=== PATIENT | male | born 1965 | race Caucasian/White ===

== ENCOUNTER 2022-09-28 19:42 | Emergency (ER) | payer MEDICAID, SELFPAY ==
--- NOTE | 2022-09-28 19:52 | ED_ITS ---
HPI - General Adult General Chief complaint: Skin/Abscess/Foreign Body Stated complaint: ? food stuck in throat Related Data Home Medications Medication Instructions Recorded Confirmed cyclobenzaprine 10 mg tablet 10 mg PO TID 09/29/22 09/29/22 naproxen 500 mg tablet 500 mg PO BID 09/29/22 09/29/22 omeprazole 20 mg capsule,delayed 20 mg PO DAILY 09/29/22 09/29/22 release pregabalin 300 mg capsule 300 mg PO BID 09/29/22 09/29/22 Allergies Allergy/AdvReac Type Severity Reaction Status Date / Time aspirin AdvReac Epistaxis Verified 09/29/22 13:11 [facility] Past Medical History Medical History (Updated 10/02/22 @ 11:50 by Marybel Ulloa NP) Chronic back pain History of dysphagia Hx of gastroesophageal reflux (GERD) Hx of myocardial infarction Neck pain with history of cervical spinal surgery Surgical History History of surgery on wrist Hx of cervical spine surgery Social History Social History Alcohol intake: current Patient Tobacco Use Status: Current everyday Tobacco user Smoked in Last 30 Days: Yes Patient Interested in Nicotine Replacement: No Use of substances other than those prescribed or required for medical reasons: Yes Substance Use Type: Marijuana Substance Use Frequency: Occasionally Are you DNR?: No Advance Directives: No Advance Directives Information Provided: No Nutrition Risks: No Nutritional Risk Physical Exam ED Vital Signs: BMI result Body Mass Index 24.4 Course Course Course Narrative: This is a rapid medical exam: Additional HPI, ROS, PE not included below will be deferred to primary provider. Patient is a 56-year-old male presenting with foreign body sensation to chest/epigastric area and difficulty swallowing since eating steak last night. Reports issues swallowing since neck surgery in 2020 but has not had an endoscopy or swallow study. States has happened previously as well but has never been to the ED, is typically able to swallow or vomit the obstruction. Patient is managing secretions, no airway compromise. Speaking easily in full sentences. States has attempted fluids, ice cream, has vomited with all attempts. Discharge Plan Discharge Clinical Impression: Difficulty in swallowing Patient Disposition: Elopement Prescriptions: No Action cyclobenzaprine 10 mg tablet 10 mg PO TID omeprazole 20 mg capsule,delayed release(DR/EC) 20 mg PO DAILY naproxen 500 mg tablet 500 mg PO BID pregabalin 300 mg capsule 300 mg PO BID Interventions: ED Discharge Assessment Last Done: 09/28/22 22:37 Discharge Date/Time: 09/28/22 22:38
[2022-09-28 19:54] VITALS: BP 146/100; PULSE 88; RESP 18; TEMP 36.9; O2SAT 94; BMI 24.4
--- NOTE | 2022-09-28 20:01 | PC.NURSE ---
patient came in for the complaint of food being stuck in the sternum area patient have no complaints of pain at this time
--- NOTE | 2022-09-28 22:22 | MHC.EDTECH ---
PATIENT SAID HE COULD NOT BREATHE ,THIS PCT CHECK PATIENT 02 SAT WHICH READ 100 % ,RN AWARE ,PATIENT BECAME VERY DISRESPECTFUL MYSELF ,NURSE AND REGISTRATION STAFF ,AND THEN WALK OUT .
--- NOTE | 2022-09-28 22:24 | PC.NURSE ---
patient was triage and all vitals were stable patient later came trying to force his way in the triage door being hyper verbal demanding to be seen stating he could not breath patient was reassured that he was being monitored someone would recheck patient became hyper verbal and aggressive with the other staff and while being monitored and told he was not showing no distress at this time the patient stormed out of the front door threatening staff
--- OUTSIDE RECORDS SUMMARY | 2022-09-28 22:31 | XMS_ITS | Continuity of Care Document ---
Author Name Unknown Organization [facility] Address [address] [place] [address]- Care Team Providers Care Security Project Manager Name Role Phone Vonda Burch MD Primary Care Physician Encounter [facility] Date(s): 07/27/20 - 09/12/20 [facility] [address] [place] [address]- Attending Physician: Juan Bishop Allergies, Adverse Reactions, Alerts Substance Reaction Severity Status amoxicillin 1 Active aspirin Active Vancomycin Hydrochloride 2 A ctive 1developed a diffuse morbilliform rash several days after amoxicillin; had mild eosinophilia but no other systemic symptoms 2possible reaction-- not erythroderma; pt developed maculopapular rash on forearms b/l at time of vancomycin admin, still there 24 hrs later but improving. Immunizations Not Given Vaccine Date Status Refusal Reason pneumococcal 23-valent vaccine 06/17/18 Not Given Patient Refuses Medications aspirin 81 mg oral tablet 1 tablet = 81 mg, By Mouth, Daily, # 30 tablet, 0 Refills, Maintenance, 12/18/17 21:13:23 EDT, Tablet Start Date: 12/18/17 Status: Ordered Colace sodium 100 mg oral capsule 200 mg, 2, capsule, By Mouth, 2 times a day, PRN, # 120 capsule, Refills 0, Tot. Refills 0, Maintenance, for constipation, 01/01/18 15:13:56 EDT, Route to Pharmacy Electronically, [id number], [facility]/pharmacy #[id number] Start Date: 01/01/18 Status: Ordered cyclobenzaprine 10 mg oral tablet 10 mg, 1, tablet, By Mouth, 3 times a day, Refills 0, Maintenance, 01/01/18 11:54:25 EDT Start Date: 01/01/18 Status: Ordered Gabapentin = 600 mg, By Mouth, 3 times a day, 0 Refills, Maintenance, 03/26/19 7:47:00 EST Start Date: 03/26/19 Status: Ordered Gauze Pad (4 X 4) See Instructions, # 2 box, Maintenance, Dressing change 2x daily for RLE wound, 06/24/18 12:22:11 EDT, Compound Start Date: 06/24/18 Status: Ordered Gauze Roll (4 ) See Instructions, # 2 each, Maintenance, Dressing change 2x daily for RLE wound, 06/24/18 12:22:06 EDT, Compound Start Date: 06/24/18 Status: Ordered Lipitor 80 mg oral tablet 1 tablet = 80 mg, By Mouth, Daily, # 30 tablet, 0 Refills, Maintenance, Tablet Start Date: 12/18/17 Status: Ordered Lyrica 100 mg oral capsule 1 capsule = 100 mg, By Mouth, 2 times a day, 0 Refills, Maintenance, 03/26/19 7:48:00 EST Start Date: 03/26/19 Status: Ordered Mavyret 100 mg-40 mg oral tablet 3 tablet, By Mouth, Daily, with food, # 84 tablet, 1 Refills, Maintenance, 10/03/18 12:42:54 EDT, Tablet, Hold Atorvastatin while on Mavyret, 3 tablet By Mouth Daily,x28 days,Instr:with food Start Date: 10/03/18 Stop Date: 11/28/18 Status: Ordered Metoprolol Tartrate 25 mg oral tablet 1 tablet = 25 mg, By Mouth, 2 times a day Start Date: 06/15/18 Status: Ordered nitroglycerin 0.4 mg sublingual tablet 1 tablet = 0.4 mg, Sublingual, Every 5 minutes, 0 Refills, Maintenance, 06/15/18 14:06:45 EDT Start Date: 06/15/18 Status: Ordered omeprazole 20 mg oral enteric coated capsule 1 capsule = 20 mg, By Mouth, Daily, # 30 capsule, 5 Refills, Maintenance, 05/11/20 10:32:00 EST, ECCapsule, [id number], 182.2, cm, 03/26/19 7:41:00 EST, Height, 105.6, kg, 04/08/19 4:02:00 EST, Dry Weight Start Date: 05/11/20 Status: Ordered Problem List Condition Effective Dates Status Health Status Inform ant CAD (coronary artery disease)(Confirmed) Active History of MRSA infection(Confirmed) Active Hyperlipemia(Confirmed) Active Hypertension(Confirmed) Active Social History Social History Type Response Tobacco Use: 4 or less cigar ettes(less than 1/4 pack)/day in last 30 days. Sex
--- OUTSIDE RECORDS SUMMARY | 2022-09-28 22:31 | XMS_ITS | Continuity of Care Document ---
Author Name Unknown Organization [facility] Address [address] [place] [address]- Care Team Providers Care Wall Taper Helper Name Role Phone Vonda Burch MD Primary Care Physician [phone] [facility] Date(s): 06/09/19 - 08/17/19 [facility] [address] [place] [address]- [facility] Attending Physician: Michael Armstrong MD Admitting Physician: Michael Armstrong MD Referring Physician: Vonda Burch MD Allergies, Adverse Reactions, Alerts Substance Reaction Severity [...] 01/01/18 15:13:56 EDT, Route to Pharmacy Electronically, [id number], [facility]/pharmacy #[id number] Start Date: 01/01/18 Status: Ordered cyclobenzaprine [...] 06/15/18 Status: Ordered omeprazole 20 mg oral delayed release tablet 1 tablet = 20 mg, By Mouth, Daily, # 30 tablet, 5 Refills, Maintenance, 06/05/19 17:16:00 EDT, EC Tablet, [facility]/pharmacy #[id number], 182.2, cm, 03/26/19 7:41:00 EST, Height, 105.6, kg, 04/08/19 4:02:00 EST,Dry Weight Start Date: 06/05/19 Status: Ordered Problem List Condition Effective Dates Status Health Status Inform ant CAD (coronary artery disease)(Confirmed) Active History of MRSA infection(Confirmed) Active Hyperlipemia(Confirmed) Active Hypertension(Confirmed) Active Social History Social History Type Response Tobacco Use: 4 or less cigar ettes(less than 1/4 pack)/day in last 30 days. Sex
--- OUTSIDE RECORDS SUMMARY | 2022-09-28 22:31 | XMS_ITS | Continuity of Care Document ---
Author Name Unknown Organization [facility] ter Address [address] [place] [address]- Care Team Providers Care Barrel Tester Name Role Phone Vonda Burch MD Primary Care Physician [phone] Encounter [facility] Date(s): 04/08/19 - 04/08/[address] [address]- [facility] Discharge Disposition: A-D/C Home Attending Physician: Héctor Singh MD Admitting Physician: Héctor Snigh MD Referring Physician: Not on Staff, Referring MD Allergies, Adverse Reactions, Alerts Substance Reaction [...] 01/01/18 15:13:56 EDT, Route to Pharmacy Electronically, [id number], [facility]/pharmacy #[id number] Start Date: 01/01/18 Status: Ordered cyclobenzaprine 10 mg oral tablet 10 mg, 1, tablet, By Mouth, 3 times a day, Refills 0, Maintenance, 01/01/18 11:54:25 EDT Start Date: 01/01/18 Status: Ordered doxycycline monohydrate 100 mg oral tablet 1 tablet = 100 mg, By Mouth, 2 times a day, for 10 days, # 20 tablet, 0 Refills, Acute 04/18/19 5:12:00 EST, 04/08/19 5:12:00 EST, Tablet, [facility]/pharmacy #[id number], 182.2, cm, 03/26/19 7:41:00 EST, Height,105.6, kg, 04/08/19 4:02:00 EST, Dry Weight Start Date: 04/08/19 Stop Date: 04/18/19 Status: Ordered Gabapentin = 600 mg, By [...] mg, By Mouth, Daily, # 30 tablet, 1 Refills, Maintenance, 03/20/19 15:47:00 EST, EC Tablet, [facility]/pharmacy #[id number], 182.2, cm, 03/20/19 15:20:00 EST, Height, 113.9, kg, 06/15/18 16:01:00 EDT, Dry Weight Start Date: 03/20/19 Status: Ordered Problem List Condition Effective Dates Status Health Status Inform ant CAD (coronary artery disease)(Confirmed) Active Hyperlipemia(Confirmed) Active Hypertension(Confirmed) Active Hepatitis C infection(Confirmed) Active Vital Signs Most recent to oldest [Reference Range]: 1 2 3 Weight 105.6 kg (04/08/19 4:02 AM) 105.6 kg (04/08/19 12:25 AM) Oxygen Saturation [94-100 %] 97 % (04/08/19 4:02 AM) 100 % (04/08/19 3:07 AM) 100 % (04/08/19 12:25 AM) Pulse Rate [55-90 bpm] 89 bpm (04/08/19 4:02 AM) 97 bpm *H* (04/08/19 3:07 AM) 97 bpm *H* (04/08/19 12:25 AM) Blood Pressure [90-138/55-84 mm Hg] 154/86mm Hg *H* (04/08/19 4:02 AM) 168/107mm Hg *H* (04/08/19 3:07 AM) 161/113mm Hg *H* (04/08/19 12:25 AM) Respiratory Rate [16-30 br/min] 20 br/min (04/08/19 4:02 AM) 20 br/min (04/08/19 3:07 AM) 24 br/min (04/08/19 12:25 AM) Temperature [96.8-100.4 DegF] 97.6 DegF (04/08/19 3:07 AM) 97.6 DegF (04/08/19 12:25 AM) Mode of Delivery (Oxygen) Room air (04/08/19 3:07 AM) Room air (04/08/19 12:25 AM) Blood pressure sites Arm, right (04/08/19 3:07 AM) Arm, right (04/08/19 12:25 AM) Temperature Route Oral (04/08/19 3:07 AM) Oral (04/08/19 12:25 AM) Dry Weight 105.6 kg (04/08/19 4:02 AM) 105.6 kg (04/08/19 12:25 AM) Weight Obtained Via Standing scale (04/08/19 12:25 AM) Dry Weight Obtained Via Standing scale (04/08/19 12:25 AM) Social History Social History Type Response Tobacco Use: 4 or less cigar ettes(less than 1/4 pack)/day in last 30 days. Sex
--- OUTSIDE RECORDS SUMMARY | 2022-09-28 22:31 | XMS_ITS | Continuity of Care Document ---
Author Name Unknown Organization [facility] Address [address] [place] [address]- Care Team Providers Care Lens Blank Gauger Name Role Phone Vonda Burch MD Primary Care Physician Encounter [facility] Date(s): 08/13/20 - 09/12/[facility] [address] [place] [address]- Attending Physician: Alejandro Hernández Admitting Physician: Alejandro Hernández Referring Physician: AdmtrAlejandro Allergies, Adverse Reactions, Alerts Substance Reaction Severity [...] 01/01/18 15:13:56 EDT, Route to Pharmacy Electronically, [id number], [facility]/pharmacy #[id number] Start Date: 01/01/18 Status: Ordered [...]
--- OUTSIDE RECORDS SUMMARY | 2022-09-28 22:31 | XMS_ITS | Continuity of Care Document ---
Author Name Unknown Organization [facility] Address [address] [place] [address]- Care Team Providers Care Airfield Engineer Officer Name Role Phone Vonda Burch MD Primary Care Physician [phone] Encounter [facility] R [id number] Date(s): 05/16/19 - 07/13/19 [facility] [address] [place] [address]- [facility] Attending Physician: Michael Armstrong MD Admitting Physician: [...] 01/01/18 15:13:56 EDT, Route to Pharmacy Electronically, [id number], [facility]/pharmacy #[id number] Start Date: 01/01/18 Status: Ordered cyclobenzaprine [...] Refills, Maintenance, 06/05/19 17:16:00 EDT, EC Tablet, [facility]/pharmacy #[id number], 182.2, cm, 03/26/19 7:41:00 EST, Height, 105.6, kg, 04/08/19 4:02:00 EST,Dry Weight Start Date: 06/05/19 Status: Ordered Problem List Condition Effective Dates Status Health Status Inform ant CAD (coronary artery disease)(Confirmed) Active Hyperlipemia(Confirmed) Active Hypertension(Confirmed) Active Hepatitis C infection(Confirmed) Active Social History Social History Type Response Tobacco Use: 4 or less cigar ettes(less than 1/4 pack)/day in last 30 days. Sex
--- OUTSIDE RECORDS SUMMARY | 2022-09-28 22:31 | XMS_ITS | Continuity of Care Document ---
Author Name Unknown Organization [facility] Address [address] [place] [address]- Care Team Providers Care Recreation Instructor Name Role Phone Marcin BALBUENA, Vonda Andrea Primary Care Physician Encounter [facility] Date(s): 04/28/22 - 05/28/22 [facility] [address] [place] [address]- [place] Allergies, Adverse Reactions, Alerts Substance Reaction Severity [...] 01/01/18 15:13:56 EDT, Route to Pharmacy Electronically, [id number], [facility]/pharmacy #[id number] Start Date: 01/01/18 Status: Ordered cyclobenzaprine [...] Daily, # 30 capsule, 5 Refills, Maintenance, 12/05/21 10:15:00 EDT, ECCapsule, [facility]/pharmacy #[id number] Start Date: 12/05/21 Status: Ordered Problem List Condition Confirmation Course Effective Dates Status Health St atus Informant CAD (coronary artery disease) Confirmed Active History of MRSA infection Confirmed Active Hyperlipemia Confirmed Active Hypertension Confirmed Active Social History Social History Type Response Tobacco Use: 4 or less cigar ettes(less than 1/4 pack)/day in last 30 days. Sex Patient Care team information Care Team Personnel Name: Chante Demarco RN Position: S RN Member Role: Primary Care Nurse Name: Vonda Burch MD Position: [facility] Primary Care Physician Member Role: PCP Address: Address: [address] [place] [address] [place] [address]- Name: Loren Angel RN Position: [facility] RN Member Role: Primary Care Nurse Name: Vanna Song RN Position: [facility] Onco RN Member Role: Primary Care Nurse Care Team Related Persons Name: SAMIR SAAB Address: home [address] [place] [address]
--- OUTSIDE RECORDS SUMMARY | 2022-09-28 22:31 | XMS_ITS | Continuity of Care Document ---
Author Name Unknown Organization [facility] Address [address] [place] [address]- Care Team Providers Care Tank Furnace Operator Name Role Phone Vonda Burch MD Primary Care Physician Encounter [facility] Date(s): 07/25/19 - 08/01/19 [facility] [address] [place] [address]- [facility] Encounter Diagnosis History of MRSA infection(Discharge Diagnosis) - 07/25/19 Attending Physician: Michael Armstrong MD Referring Physician: Vonda [...] 01/01/18 15:13:56 EDT, Route to Pharmacy Electronically, [id number], [facility]/pharmacy #[id number] Start Date: 01/01/18 Status: Ordered [...] Refills, Maintenance, 06/05/19 17:16:00 EDT, EC Tablet, [id number], 182.2, cm, 03/26/19 7:41:00 EST, Height, 105.6, kg, 04/08/19 4:02:00 EST,Dry Weight Start Date: 06/05/19 Status: Ordered Problem List Condition Effective Dates Status Health Status Inform ant CAD (coronary artery disease)(Confirmed) Active History of MRSA infection(Confirmed) Active Hyperlipemia(Confirmed) Active Hypertension(Confirmed) Active Diagnosis Diagnosis Type Effective Dates Health Status Cl inical Service Informant History of MRSA infection Discharge Diagnosis 07/25/19 Social History Social History Type Response Tobacco Use: 4 or less cigar ettes(less than 1/4 pack)/day in last 30 days. Sex
--- OUTSIDE RECORDS SUMMARY | 2022-09-28 22:31 | XMS_ITS | Continuity of Care Document ---
Author Name Unknown Organization [facility] Address [address] [address]- Care Team Providers Care Ecommerce Manager Name Role Phone Marcin BALBUENA, Vonda Andrea Primary Care Physician [phone] Encounter [facility] Date(s): 01/05/22 - 02/04/22 [facility] [address] [place] [id number] Attending Physician: Alejandro Hernández Admitting Physician: Alejandro [...] 01/01/18 15:13:56 EDT, Route to Pharmacy Electronically, [id number], [facility]/pharmacy #[id number] Start Date: 01/01/18 [...] capsule, 5 Refills, Maintenance, 12/05/21 10:15:00 EDT, ECCapslawrence, [facility]/pharmacy #[id number] Start Date: 12/05/21 Status: Ordered Problem [...] Team Personnel Name: Chante Demarco RN Position: [facility] RN Member Role: Primary Care Nurse Name: Vonda Burch MD Position: [facility] Primary Care Physician Member Role: PCP Address: Address: [address] [place] [address] [place] [address]- Name: Loren Angel RN Position: [facility] RN Member Role: Primary Care Nurse Name: Vanna Song RN Position: [facility] Onco RN Member Role: Primary Care Nurse Care Team Related Persons Name: SAMIR SAAB Address: [address] [address]
--- OUTSIDE RECORDS SUMMARY | 2022-09-28 22:31 | XMS_ITS | Continuity of Care Document ---
Author Name Unknown Organization [facility] Address [address] [place] [address]- Care Team Providers Care Ophthalmic Assistant Name Role Phone Marcin BALBUENA, Vonda Andrea Primary Care Physician [phone] [facility] Date(s): 10/01/19 - 10/31/19 [facility] [address] [place] [address]- [facility] Allergies, Adverse Reactions, Alerts Substance Reaction Severity [...] 01/01/18 15:13:56 EDT, Route to Pharmacy Electronically, [id number], [facility]/pharmacy #[id number] Start Date: 01/01/18 Status: Ordered [...] Daily, # 30 capsule, 5 Refills, Maintenance, 10/01/19 16:58:00 EDT, ECCapsule, [facility]/pharmacy #[id number], 182.2, cm, 03/26/19 7:41:00 EST, Height, 105.6, kg, 04/08/19 4:02:00 EST, Dry Weight Start Date: 10/01/19 Status: Ordered Problem List Condition Effective Dates Status Health Status Inform ant CAD (coronary artery disease)(Confirmed) Active History of MRSA infection(Confirmed) Active Hyperlipemia(Confirmed) Active Hypertension(Confirmed) Active Social History Social History Type Response Tobacco Use: 4 or less cigar ettes(less than 1/4 pack)/day in last 30 days. Sex
--- OUTSIDE RECORDS SUMMARY | 2022-09-28 22:31 | XMS_ITS | Continuity of Care Document ---
Author Name Unknown Organization [facility] Disease Address [address] [place] [address]- Care Team Providers Care Reclamation Kettle Tender Name Role Phone Marcin BALBUENA, Vonda Andrea Primary Care Physician [phone] Encounter [facility] [place] Date(s): 07/22/19 - 08/24/19 [facility] [address] [place] [address]- [facility] Attending Physician: Michael Armstrong MD Allergies, Adverse Reactions, Alerts Substance Reaction [...] 01/01/18 15:13:56 EDT, Route to Pharmacy Electronically, [id number], [facility]/pharmacy #[id number] Start Date: 01/01/18 Status: Ordered cyclobenzaprine [...] Refills, Maintenance, 06/05/19 17:16:00 EDT, EC Tablet, [facility]/pharmacy #[id number], 182.2, cm, 03/26/19 7:41:00 EST, Height, [...]
--- OUTSIDE RECORDS SUMMARY | 2022-09-28 22:31 | XMS_ITS | Continuity of Care Document ---
Author Name Unknown Organization [facility] ter Address [address] [place] [address]- Care Team Providers Care Vacuum Tester Cans Name Role Phone Vonda Burch MD Primary Care Physician Encounter [facility] Date(s): 03/24/19 - 10/05/[address] [address]- [facility] Attending Physician: Harjeet Palomo Admitting Physician: Harjeet Palomo Referring Physician: Harjeet Palomo Allergies, Adverse Reactions, Alerts Substance Reaction Severity [...] 01/01/18 15:13:56 EDT, Route to Pharmacy Electronically, [id number], [facility]/pharmacy #[id number] Start Date: 01/01/18 Status: [...] Refills, Maintenance, 06/05/19 17:16:00 EDT, EC Tablet, [facility]/pharmacy #[id number], 182.2, cm, 03/26/19 7:41:00 EST, Height, 105.6, kg, 04/08/19 4:02:00 EST,Dry Weight Start Date: 06/05/19 Status: Ordered omeprazole 20 mg oral enteric coated capsule 1 capsule = 20 mg, By Mouth, Daily, # 30 capsule, 5 Refills, Maintenance, 10/01/19 16:58:00 EDT, Jer[place], [facility]/pharmacy #[id number], 182.2, cm, 03/26/19 7:41:00 [...]
--- OUTSIDE RECORDS SUMMARY | 2022-09-28 22:31 | XMS_ITS | Continuity of Care Document ---
Author Name Unknown Organization [facility] Address [address] [place] [address]- Care Team Providers Care Cognos Lead Name Role Phone Vonda Burch MD Primary [id number] - 04/30/[facility] [address] [place] [address]- [facility] Attending Physician: Misael Poe MD, V Admitting Physician: Misael Poe MD, V Referring Physician: Vonda Burch MD Allergies, Adverse [...] 01/01/18 15:13:56 EDT, Route to Pharmacy Electronically, [id number], [facility]/pharmacy #[id number] Start Date: 01/01/18 Status: [...] Refills, Maintenance, 03/20/19 15:47:00 EST, EC Tablet, [facility]/pharmacy #[id number], 182.2, cm, 01/02/20 15:20:00 EST, Height, 113.9, kg, 06/15/18 16:01:00 [...]
--- OUTSIDE RECORDS SUMMARY | 2022-09-28 22:31 | XMS_ITS | Continuity of Care Document ---
Author Name Unknown Organization [facility] Address [address] [place] [id number]- Care Team Providers Care Terminal Gauger Supervisor Name Role Phone Vonda Burch MD Primary Care Physician En[facility] Date(s): 03/31/19 - 04/10/19 [facility] [address] [place] [address]- [facility] Attending Physician: Alejandro Hernández Admitting Physician: Alejandro Hernández Referring Physician: Alejandro Hernández Allergies, Adverse Reactions, Alerts Substance Reaction Severity [...] 01/01/18 15:13:56 EDT, Route to Pharmacy Electronically, [id number], [facility]/pharmacy #[id number] Start Date: 01/01/18 Status: Ordered [...] 04/18/19 5:12:00 EST, 04/08/19 5:12:00 EST, Tablet, [facility]/pharmacy #[id number], 182.2, cm, 03/26/19 7:41:00 EST, [...] Refills, Maintenance, 03/20/19 15:47:00 EST, EC Tablet, [facility]/pharmacy #[id number], 182.2, cm, 03/20/19 15:20:00 EST, [...]
--- OUTSIDE RECORDS SUMMARY | 2022-09-28 22:31 | XMS_ITS | Continuity of Care Document ---
Author Name Unknown Organization [facility] Address [address] [place] [address]- Care Team Providers Care Weave Defect Charting Clerk Name Role Phone Vonda Burch MD Primary Care Physician [place] [facility] [place] Date(s): 04/18/19 - 06/15/19 [facility] [address] [place] [address]- [facility] Attending Physician: Michael Armstrong MD Admitting Physician: [...] 01/01/18 15:13:56 EDT, Route to Pharmacy Electronically, [id number], [facility]/pharmacy #[id number] Start Date: 01/01/18 Status: Ordered [...] Refills, Maintenance, 06/05/19 17:16:00 EDT, EC Tablet, [facility]/pharmacy #[id number], 182.2, cm, 03/26/19 7:41:00 EST, [...]
--- OUTSIDE RECORDS SUMMARY | 2022-09-28 22:31 | XMS_ITS | Continuity of Care Document ---
Author Name Unknown Organization [facility] Address [address] [place] [address]- Care Team Providers Care Back Digger Operator Name Role Phone Vonda Burch MD Primary Care Physician [phone] [id number] Date(s): 03/11/19 - 05/31/19 [facility] [address] [place] [address]- [facility] Attending Physician: Yosef Pollack MD Admitting Physician: Yosef Pollack MD Referring Physician: Vonda Burch MD Allergies, [...] 01/01/18 15:13:56 EDT, Route to Pharmacy Electronically, [id number], [facility]/pharmacy #[id number] Start Date: 01/01/18 Status: Ordered [...] Refills, Maintenance, 03/20/19 15:47:00 EST, EC Tablet, [facility]/pharmacy #[id number], 182.2, cm, 03/20/19 15:20:00 EST, Height, 113.9, [...]
--- OUTSIDE RECORDS SUMMARY | 2022-09-28 22:31 | XMS_ITS | Continuity of Care Document ---
Author Name Unknown Organization [facility] Address [address] [place] [address]- Care Team Providers Care Supervisor Beehive Kiln Name Role Phone Marcin BALBUENA, Vonda Andrea Primary Care Physician Encounter [facility] [place] Date(s): 07/25/19 - 08/24/19 [facility] [address] [place] [address]- [facility] Attending Physician: Alejandro Hernández Admitting Physician: Alejandro [...] 01/01/18 15:13:56 EDT, Route to Pharmacy Electronically, [id number], [facility]/pharmacy #[id number] Start Date: 01/01/18 Status: Ordered [...] Refills, Maintenance, 06/05/19 17:16:00 EDT, EC Tablet, [facility]/pharmacy #[id number], 182.2, cm, 03/26/19 7:41:00 EST, Height, [...]
--- OUTSIDE RECORDS SUMMARY | 2022-09-28 22:31 | XMS_ITS | Continuity of Care Document ---
Author Name Unknown Organization [facility] ter Address [address] [place] [address]- Care Team Providers Care Chief Engineer Research Name Role Phone Marcin BALBUENA, Vonda Andrea Primary Care Physician [place] [facility] [place] 03/21/19 - 08/23/[address] [address]- [facility] Attending Physician: Michael Weiner MD Admitting Physician: Michael Weiner MD Allergies, Adverse Reactions, Alerts Substance Reaction [...] 01/01/18 15:13:56 EDT, Route to Pharmacy Electronically, [id number], [facility]/pharmacy #[id number] Start Date: 01/01/18 Status: [...] Refills, Maintenance, 06/05/19 17:16:00 EDT, EC Tablet, [facility]/pharmacy #[id number], 182.2, cm, 03/26/19 7:41:00 [...]
== END 2022-09-28 22:38 | disposition left against medical advice (07) ==
LOC: HO.ED 22:29
PROVIDERS: Emergency Provider Emergency Medicine
DX: R13.10 Dysphagia, unspecified (principal)
CPT/HCPCS: 99282

== ENCOUNTER 2022-09-29 09:40 | Day surgery (SDC) | payer MEDICAID, SELFPAY ==
[2022-09-29] VITALS (9 sets, daily range): BP systolic 131–178; BP diastolic 84–108; PULSE 77–110; RESP 11–18; TEMP 36.1–36.8; O2SAT 95–99; BMI 23.6
--- NOTE | 2022-09-29 | ECG_ITS ---
Test Reason : cp Blood Pressure : / mmHG Vent. Rate : 086 BPM Atrial Rate : 086 BPM P-R Int : 142 ms QRS Dur : 086 ms QT Int : 376 ms P-R-T Axes : 068 048 051 degrees QTc Int : 449 ms Normal sinus rhythm Normal ECG When compared with ECG of 06-JUN-2018 15:03, No significant change was found Referred By: Mir Sanders Electronically Signed By:JAH RILEY MD
--- NOTE | 2022-09-29 09:49 | ED_ITS ---
HPI - General Adult General Chief complaint: General Medical Stated complaint: chest pressure, diff swallowing Time Seen by Provider: 09/29/22 09:43 Source: patient Mode of arrival: EMS Limitations: no limitations History of Present Illness HPI narrative: This is a 56 years old man presented to the emergency department via ambulance complaining of inability to swallow since yesterday. He came yesterday to the ED but left because the wait. He denies any fever chills vomiting or diarrhea. Onset (ago): day(s) (1) Radiation: non-radiation Severity: mild Pain Consistency: constant Relieving factors: none Exacerbating factors: none Related Data Home Medications Medication Instructions Recorded Confirmed cyclobenzaprine 10 mg tablet 10 mg PO TID 09/29/22 09/29/22 naproxen 500 mg tablet 500 mg PO BID 09/29/22 09/29/22 omeprazole 20 mg capsule,delayed 20 mg PO DAILY 09/29/22 09/29/22 release pregabalin 300 mg capsule 300 mg PO BID 09/29/22 09/29/22 Allergies Allergy/AdvReac Type Severity Reaction Status Date / Time aspirin AdvReac Epistaxis Verified 09/29/22 13:11 Review of Systems Constitutional: Constitutional: Reports no additional constitutional complaints ENT: Reports system reviewed and no additional complaints, except as documented Gastrointestinal: Comments: unable to swallow PMFSH Past Medical History Medical History (Updated 09/29/22 @ 13:50 by Greta Graham RN) Chronic back pain History of dysphagia Hx of gastroesophageal reflux (GERD) Hx of myocardial infarction Neck pain with history of cervical spinal surgery Surgical History History of surgery on wrist Hx of cervical spine surgery Social History Social History Alcohol intake: current Patient Tobacco Use Status: Current everyday Tobacco user Smoked in Last 30 Days: Yes Patient Interested in Nicotine Replacement: No Use of substances other than those prescribed or required for medical reasons: Yes Substance Use Type: Marijuana Substance Use Frequency: Occasionally Are you DNR?: No Advance Directives: No Advance Directives Information Provided: No Nutrition Risks: No Nutritional Risk Physical Exam ED Vital Signs: Vital Signs - 24 hr 09/29/22 09:46 09/29/22 11:45 09/29/22 13:12 Temperature 98.3 F 98.3 F Pulse Rate 93 82 83 Respiratory Rate 18 11 L 18 Blood Pressure 131/86 155/96 H 148/99 H Pulse Oximetry 96 96 95 Oxygen Delivery Method Room Air Room Air Room Air Oxygen Flow Rate 09/29/22 15:37 09/29/22 15:42 09/29/22 15:47 Temperature 97 F Pulse Rate 84 78 82 Respiratory Rate 16 16 16 Blood Pressure 146/97 H 146/90 H 149/88 H Pulse Oximetry 99 99 98 Oxygen Delivery Method Simple Mask Simple Mask Room Air Oxygen Flow Rate 6 6 09/29/22 15:52 09/29/22 16:07 Temperature 97.7 F Pulse Rate 80 82 Respiratory Rate 16 16 Blood Pressure 145/89 H 151/84 H Pulse Oximetry 98 98 Oxygen Delivery Method Room Air Room Air Oxygen Flow Rate BMI result Body Mass Index 23.6 Const General: cooperative HENMT Head: Yes normal to inspection General nose exam: Normal external nose present Face and sinus: Yes normal facial exam Mouth: Normal oral and palatal mucosa present Neck Neck: Yes normal visual inspection Thyroid: Thyroid normal Resp Effort & Inspection: normal respiratory effort Auscultation: clear to auscultation bilaterally Cardio Jugular venous distension: no JVD Rate: regular rate Rhythm: regular rhythm GI Inspection: Yes normal to inspection Palpation (GI): Soft to palpation Skin General skin exam: no rashes or lesions noted Course Reevaluation(s) Reevaluation #1: No response after the glucagon at this point we paged GI Dr Osborn Time: 10:31 Reevaluation #2: spoke with Dr Osborn GI Time: 11:28 Medications Administered Generic Name Dose Route Start Last Admin Trade Name Freq PRN Reason Stop Dose Admin Lactated Ringer's 1,000 mls @ 50 mls/hr 09/29/22 13:15 09/29/22 13:30 Lr IVCONT 50 mls/hr .Q20H PAT Administration Discontinued Medications Generic Name Dose Route Start Last Admin Trade Name Freq PRN Reason Stop Dose Admin Glucagon 1 mg 09/29/22 09:48 09/29/22 10:16 Glucagon,Human Recombinant 1 Mg/Ml Vial IVPUSH 09/29/22 09:49 1 mg ONCE ONE Administration Metoclopramide HCl 10 mg 09/29/22 11:18 09/29/22 11:42 Metoclopramide Hcl 10 Mg/2 Ml Vial IVPUSH 09/29/22 11:19 10 mg ONCE ONE Administration Morphine Sulfate 4 mg 09/29/22 11:18 09/29/22 11:42 Morphine Sulfate 4 Mg/Ml Cartridge IVPUSH 09/29/22 11:19 4 mg ONCE ONE Administration Protocol Medical Decision Making Medical Decision Making MDM Narrative: Patient presented with inability to swallow will attempt glucagon he does no work to consult GI. Discuss with GI patient will go for emergent endoscopy. He will be discharged to endoscopy Differential Diagnosis Differential Diagnoses: The differential diagnosis associated with the presentation includes Esophageal obstruction/esophageal perforation/esophageal stricture Admission/Observation Consideration of admission/observation: Escalation of care including admis gardenia/observation considered Consult Healthcare Provider Management of the patient was discussed with: Avionics Mechanic DR Osborn Lab Data MDM Lab Attestation statement: I reviewed the patient's lab results. 09/29/22 10:05 09/29/22 10:04 Labs: Lab Results 09/29/22 09/29/22 Range/Units 10:04 10:05 WBC 7.4 (4.8-10.8) X10*3/uL RBC 5.52 (4.60-5.80) X10*6/uL Hgb 16.4 (14.0-18.0) g/dl Hct 48.6 (42.0-52.0) % MCV 88.0 (80.0-98.0) fL MCH 29.7 (27.0-33.0) pg MCHC 33.7 (31.0-36.0) g/dl RDW 12.3 (11.0-16.0) % Plt Count 258 (160-400) X10*3/uL MPV 9.7 (9.4-12.4) fL Immature Gran % (Auto) 0.3 (0.0-0.4) % Neut % (Auto) 78.7 H (45-73) % Lymph % (Auto) 12.7 L (20-40) % [place] % (Auto) 6.4 (2-11) % Eos % (Auto) 0.7 (0-4) % Baso % (Auto) 1.2 (0-2) % Lymph # (Auto) 0.9 L (1.2-4.9) X10*3/uL [place] # (Auto) 0.5 (0.1-1.2) X10*3/uL Eos # (Auto) 0.1 (0.0-0.4) X10*3/uL Baso # (Auto) 0.1 (0.0-0.2) X10*3/uL Abs Immat Gran (auto) 0.02 (0.00-0.03) X10*3/uL Absolute Neuts (auto) 5.8 (2.0-8.3) x10*3/uL Absolute Nucleated RBC 0.000 (0.0-0.012) X10*3/uL Nucleated RBC % (auto) 0.0 (0.0-0.2) /100WBC Sodium 141 (135-145) mmol/L Potassium 3.6 (3.3-5.1) mmol/L Chloride 102 (96-108) mmol/L Carbon Dioxide 26 (22-29) mmol/L Anion Gap 17 (12-20) BUN 20 H (9-16) mg/dL Creatinine 0.80 (0.5-1.4) mg/dL Estim Creat Clear Calc 113.1 Estimated GFR > 60 Random Glucose 120 H (60-115) mg/dL Calcium 10.2 (8.4-10.2) mg/dL Total Bilirubin 0.8 (0.0-1.0) mg/dL AST 16 (5-37) U/L ALT 10 (0-40) U/L Alkaline Phosphatase 81 (39-117) U/L Total Protein 8.2 H (6.5-8.0) g/dL Albumin 4.7 (3.5-5.0) g/dL Discharge Plan Discharge Clinical Impression: Food bolus obstruction of intestine Patient Disposition: Still a Patient Prescriptions: No Action cyclobenzaprine 10 mg tablet 10 mg PO TID omeprazole 20 mg capsule,delayed release(DR/EC) 20 mg PO DAILY naproxen 500 mg tablet 500 mg PO BID pregabalin 300 mg capsule 300 mg PO BID
[2022-09-29 10:11] LABS: MANUAL DIFF FLAG NO
[2022-09-29 10:21] LABS: Basophils Absolute Auto 0.1 X10*3/uL (0.0-0.2); Basophils Percent Auto 1.2 % (0-2); Eosinophils Absolute Auto 0.1 X10*3/uL (0.0-0.4); Eosinophils Percent Auto 0.7 % (0-4); Hematocrit 48.6 % (42.0-52.0); Hemoglobin 16.4 g/dl (14.0-18.0); Imm Gran Abs Auto 0.02 X10*3/uL (0.00-0.03); Imm Gran Pct Auto 0.3 % (0.0-0.4); Lymphocytes Absolute Auto 0.9 X10*3/uL (1.2-4.9); Lymphocytes Percent Auto 12.7 % (20-40); Mean Corpuscular HGB Conc 33.7 g/dl (31.0-36.0); Mean Corpuscular Hemoglobin 29.7 pg (27.0-33.0); Mean Platelet Volume 9.7 fL (9.4-12.4); Monocytes Absolute Auto 0.5 X10*3/uL (0.1-1.2); Monocytes Percent Auto 6.4 % (2-11); Neutrophils Absolute Auto 5.8 x10*3/uL (2.0-8.3); Neutrophils Percent Auto 78.7 % (45-73); Platelet Count 258 X10*3/uL (160-400); Red Blood Count 5.52 X10*6/uL (4.60-5.80); Red Cell Distribution Width 12.3 % (11.0-16.0); White Blood Count 7.4 X10*3/uL (4.8-10.8)
[2022-09-29 10:50] LABS: Alanine Aminotransferase 10 U/L (0-40); Albumin Level 4.7 g/dL (3.5-5.0); Alkaline Phosphatase 81 U/L (39-117); Anion Gap 17 (12-20); Aspartate Amino Transferase 16 U/L (5-37); Bilirubin Total 0.8 mg/dL (0.0-1.0); Blood Urea Nitrogen 20 mg/dL (9-16); Calcium 10.2 mg/dL (8.4-10.2); Carbon Dioxide 26 mmol/L (22-29); Chloride 102 mmol/L (96-108); Creatinine Clr Calc Pharmacy 113.1; Estimated Glomerular Filt Rate > 60; Glucose Random 120 mg/dL (60-115); Potassium 3.6 mmol/L (3.3-5.1); Sodium 141 mmol/L (135-145); Total Protein 8.2 g/dL (6.5-8.0)
[2022-09-29] MEDS: Morphine Sulfate 4 MG/ML CARTRIDGE IVPUSH (11:42)
[2022-09-29] MEDS: Metoclopramide HCl 10 MG/2 ML VIAL IVPUSH (11:42)
--- NOTE | 2022-09-29 13:15 | P.CONAN_ITS ---
HPI - Anesthesia Eval Consult details Narrative: emergent food bolus for disimpaction PMFSH Active Problems Active Problems: All Active Problems (Updated 09/29/22 @ 13:11 by Greta Graham RN) Food bolus obstruction of intestine (Acute) Past Medical History Medical History Chronic back pain History of dysphagia Hx of myocardial infarction Neck pain with history of cervical spinal surgery Family History Family history of problems with anesthesia: No Surgical History Surgical History History of surgery on wrist Hx of cervical spine surgery History of Problems with Anesthesia: No Social History Social History Alcohol intake: current Patient Tobacco Use Status: Current everyday Tobacco user Smoked in Last 30 Days: Yes Patient Interested in Nicotine Replacement: No Use of substances other than those prescribed or required for medical reasons: Yes Substance Use Type: Marijuana Substance Use Frequency: Occasionally Are you DNR?: No Advance Directives: No Advance Directives Information Provided: No Nutrition Risks: No Nutritional Risk Meds Allergies Allergy/AdvReac Type Severity Reaction Status Date / Time aspirin AdvReac Epistaxis Verified 09/29/22 13:11 Active Medications: Current Medications Lactated Ringer's (Lr) 1,000 mls @ 50 mls/hr IVCONT .Q20H PAT Home Medications Medication Instructions Recorded Confirmed Last Taken Type cyclobenzaprine 10 mg tablet 10 mg PO TID 09/29/22 09/29/22 Unknown History naproxen 500 mg tablet 500 mg PO BID 09/29/22 09/29/22 Unknown History omeprazole 20 mg capsule,delayed 20 mg PO DAILY 09/29/22 09/29/22 Unknown His tory release pregabalin 300 mg capsule 300 mg PO BID 09/29/22 09/29/22 Unknown History Exam Exam Date and Time: September 29, 2022 1315 Height,Weight and Vital Signs: Height 6 ft Weight 78.8 kg Last Vital Signs Temp 98.3 F 09/29/22 13:12 Pulse 83 09/29/22 13:12 Resp 18 09/29/22 13:12 BP 148/99 H 09/29/22 13:12 Pulse Ox 95 09/29/22 13:12 O2 Del Method Room Air 09/29/22 13:12 Pertinent Lab Results Pertinent Lab Results: Laboratory Tests 09/29/22 09/29/22 10:04 10:05 WBC 7.4 RBC 5.52 Hgb 16.4 Hct 48.6 MCV 88.0 MCH 29.7 MCHC 33.7 RDW 12.3 Plt Count 258 MPV 9.7 Immature Gran % (Auto) 0.3 Neut % (Auto) 78.7 H Lymph % (Auto) 12.7 L [place] % (Auto) 6.4 Eos % (Auto) 0.7 Baso % (Auto) 1.2 Lymph # (Auto) 0.9 L [place] # (Auto) 0.5 Eos # (Auto) 0.1 Baso # (Auto) 0.1 Abs Immat Gran (auto) 0.02 Absolute Neuts (auto) 5.8 Absolute Nucleated RBC 0.000 Nucleated RBC % (auto) 0.0 Sodium 141 Potassium 3.6 Chloride 102 Carbon Dioxide 26 Anion Gap 17 BUN 20 H Creatinine 0.80 Estim Creat Clear Calc 113.1 Estimated GFR > 60 Random Glucose 120 H Calcium 10.2 Total Bilirubin 0.8 AST 16 ALT 10 Alkaline Phosphatase 81 Total Protein 8.2 H Albumin 4.7 Airway Mallampati Class: II TM Dist: >3cm Neck ROM: Full Heart: rrr Lungs: cta Assessment and Plan Assessment Anesthesia Assessment: Anesthesia Plan Discussed, Smoking Cess. Discussed and Chart Reviewed Final Anesthetic Review Family History of Problems with Anesthesia: No History of Problems with Anesthesia: No NPO: Yes ASA Class: III and Emergency Final Preanesthetic Review: No Changes in Pt Med Stat, Meds/Allgs Chart Reviewed, Consent Obtained/Reviewed and Anes Risks/Benef Reviewed Patient Risk: Intermediate Procedure Risk: Intermediate Anesthetic Plan Anesthetic Plan: GA and MAC: Disposition: Standard PACU
--- NOTE | 2022-09-29 13:21 | MHC.SHP ---
Pre-Procedural Eval Section A Date of Service: 09/29/22 The patient is an INPATIENT: No Changes since office visit: No Cold of Flu in the past 2 weeks, No New Medical Problems, No Changes in Medication and No Patient answered all questions The History & Physical has been completed within 30 days and I have reviewed it.: Yes Section B Chief Complaint: chest pressure, diff swallowing Allergies: Allergies Allergy/AdvReac Type Severity Reaction Status Date / Time aspirin AdvReac Epistaxis Verified 09/29/22 13:11 Plan I have reviewed the history and physical and performed a pertinent physical examination on my patient. No changes have occurred unless specified. Time Spent With Patient Time: Total time managing care of this patient today ____ minutes.
[2022-09-29] MEDS: Lactated Ringers 1,000 ML 50 ML IVCONT (13:30)
--- NOTE | 2022-09-29 15:54 | PM.OP ---
Brief Operative Note Date of Service: 09/29/22 Pre-op diagnosis: fb esophagus Post-op diagnosis: same Procedure: egd Surgeon: Troy Osborn Anesthesia: MAC Was an Automobile Mechanic Apprentice used for this Procedure?: No Estimated blood loss (mL): 5 Pathology: none sent Condition: stable Disposition: PACU
--- NOTE | 2022-09-29 23:03 | OP_ITS ---
DATE OF SERVICE: 09/29/2022 SURGEON: Troy Osborn MD INDICATIONS: Esophageal foreign body. PREOPERATIVE DIAGNOSIS: POSTOPERATIVE DIAGNOSIS: PROCEDURE PERFORMED: Upper endoscopy with removal of esophageal foreign body. ESTIMATED BLOOD LOSS: COMPLICATIONS: ANESTHESIA: General anesthesia. ASSISTANTS: SPECIMENS: DESCRIPTION OF PROCEDURE: A history and physical was performed. The risks and benefits of the procedure were explained to the patient. Informed consent was obtained. The patient was placed in the left lateral decubitus position. The Olympus video gastroscope was introduced into the esophagus. Initial attempts to remove the foreign body by pushing it into the stomach were unsuccessful. The scope was removed, and the patient underwent endotracheal intubation to protect his airway. The scope was reinserted and advanced into the esophagus, eventually into the stomach and duodenum. Examination was performed. The scope was removed. He tolerated the procedure well and was returned to the recovery area in stable condition. FINDINGS: Esophagus: There was a large foreign body consistent with a meat impaction at the distal esophagus. This could not be pushed into the stomach despite gentle pressure. Next, multiple retrieval devices including a snare, foreign body basket, rat-tooth forceps, and tripod were used to break up the foreign body by removing large pieces until the last piece could be pushed into the stomach. There was a small hiatal hernia. At the site of the food impaction was a 3 cm mucosal laceration, but no evidence of ella perforation. Stomach: The stomach showed liquid and no ulcer was identified. Duodenum: The bulb and 2nd portion were normal. IMPRESSION: Esophageal foreign body, esophageal laceration. RECOMMENDATION: 1. Clear liquid diet for 24 hours. 2. Omeprazole 40 mg daily. 3. Carafate suspension 1 g p.o. q.i.d. MD CARYL Costello/MODL / [id number]
--- NOTE | 2022-09-29 23:58 | CONS_ITS ---
DATE OF SERVICE: 09/29/2022 REFERRING PHYSICIAN: Mir Sanders MD REASON FOR CONSULTATION: Esophageal obstruction. HISTORY OF PRESENT ILLNESS: The patient is a pleasant 56-year-old man who presented to the emergency room today with esophageal obstruction symptoms. The symptoms began 2 days before admission when he ate a piece of steak and it became impacted. He presented to the emergency room yesterday, but left before being seen. Since the time of his impaction, he has been unable to swallow liquids. He did vomit up some of the material, but he is still not able to tolerate secretions. In the emergency department he was given glucagon without any improvement. Endoscopy has been requested. PAST MEDICAL HISTORY: 1. Coronary artery disease. 2. Hyperlipidemia. 3. Hypertension. 4. Hepatitis C infection. CURRENT MEDICATIONS: Current medication list is reviewed in the chart. ALLERGIES: MULTIPLE MEDICATION ALLERGIES ARE REVIEWED. FAMILY HISTORY: This is reviewed with the patient and is noncontributory. SOCIAL HISTORY: He denies substance abuse. REVIEW OF SYSTEMS: SKIN: No pruritus. HEENT: Negative. CARDIOPULMONARY: No shortness of breath or chest pain. GASTROINTESTINAL: As above. GENITOURINARY: Negative. NEUROPSYCHIATRIC: Negative. PHYSICAL EXAMINATION: GENERAL: Shows a pleasant male, lying comfortably on the stretcher. VITAL SIGNS: Reviewed in the electronic medical record and are stable. SKIN: Anicteric. HEENT: Shows no scleral icterus. NECK: Without lymphadenopathy or thyromegaly. LUNGS: Clear. HEART: Regular rate and rhythm. S1, S2. No murmur. ABDOMEN: Soft without focal masses or tenderness. Bowel sounds are present. No organomegaly is noted. EXTREMITIES: Without edema. IMPRESSION: Foreign body, esophagus. PLAN: I have discussed risks and benefits of endoscopy with the patient. He understands these and agrees to proceed. MD CARYL Costello/SARAI / [id number]
== END 2022-09-29 12:06 ==
LOC: HO.ED 11:12 → HO.SSS 10-05 09:34
PROVIDERS: Emergency Provider Emergency Medicine; Visit Provider Internal Medicine Gastroenterology
PROC: 0DJ08ZZ Inspection of Upper Intestinal Tract, Via Natural or Artificial Opening Endoscopic (ICD-10-PCS; CPT 43235; principal; 2022-09-29 12:30)
DX: T18.128A Food in esophagus causing other injury, initial encounter (principal); K44.9 Diaphragmatic hernia without obstruction or gangrene; K21.9 Gastro-esophageal reflux disease without esophagitis; I25.2 Old myocardial infarction; R13.10 Dysphagia, unspecified; F17.210 Nicotine dependence, cigarettes, uncomplicated; F12.90 Cannabis use, unspecified, uncomplicated; Z88.8 Allergy status to other drugs, medicaments and biological substances; Z79.899 Other long term (current) drug therapy
CPT/HCPCS: 43215; 36415; 80053; 85025; 93005; 96374; 96375; 99285; J0330; J1100; J1610; J2270; J2405; J2765; J3010

== ENCOUNTER → 2022-09-29 09:55 | Outpatient (BNV) | payer MEDICAID, SELFPAY | PROVIDERS: Emergency Provider Emergency Medicine; Visit Provider Internal Medicine Cardiovascular Disease | DX: R07.9 Chest pain, unspecified (principal) | CPT/HCPCS: 93010 ==

== ENCOUNTER 2022-11-06 10:19 | Outpatient (REF) | payer MEDICAID, SELFPAY ==
--- NOTE | ~2022-11-06 | FL_ITS ---
EXAMINATION: FL FLUOROSCOPY UPPER GI WITH AIR CLINICAL INFORMATION: Dysphagia. COMPARISON: None available. TECHNIQUE: Routine upper GI air-contrast study was performed in upright and lying positions. FINDINGS: Following oral administration of thick barium and effervescent granules on upright view there is normal propagation of bolus from the oral cavity through the pharynx, esophagus into stomach. No obstruction or narrowing seen. There is a ventral plate and screws from C3 to C5 vertebrae for fusion. No obstruction seen at this disc level. No laryngeal penetration or aspiration. On placing patient supine and prone lying, the course, caliber and the peristalsis of the stomach, duodenal bulb and the sweep are normal. There is mild gastroesophageal reflux without hiatal hernia. The mucosal pattern of stomach, duodenal bulb and the sweep is normal. FLUOROSCOPY TIME: 1.5 minutes DOSE AREA PRODUCT: 22 uGy-m2 (microgray-meter squared) FL/FL upper GI w air IMPRESSION: Unremarkable upper GI air-contrast study. Especially there is no obstruction or narrowing in the cervical esophagus or pharynx.
== END 2022-11-06 10:20 | disposition home or self-care (01) ==
LOC: HO.XRAY 10:19
PROVIDERS: Visit Provider Internal Medicine Gastroenterology
DX: R13.19 Other dysphagia (principal)
CPT/HCPCS: 74246

== ENCOUNTER → 2022-11-06 10:23 | Outpatient (BNV) | payer MEDICAID, SELFPAY | PROVIDERS: Visit Provider Radiology Diagnostic Radiology | DX: R13.10 Dysphagia, unspecified (principal) | CPT/HCPCS: 74246 ==

== ENCOUNTER 2022-12-05 13:59 | Emergency (ER) | payer MEDICAID, SELFPAY ==
[2022-12-05 14:02] VITALS: BP 197/119; PULSE 93; O2SAT 97
[2022-12-05 14:18] VITALS: BP 158/94; PULSE 82; RESP 18; TEMP 36.4; O2SAT 97; BMI 25.5
--- NOTE | 2022-12-05 14:21 | PC.NURSE ---
pt was put in [facility] where the charge nurse was caring for the patient briefly, this nurse found the patient a&ox3, was given a sandwich and banana and some juice, vitals obtained, pt to have repeat poc, call moralez within reach, will continue to monitor.
--- OUTSIDE RECORDS SUMMARY | 2022-12-05 14:24 | XMS_ITS | Continuity of Care Document ---
Author Name Unknown Organization [facility] Address [address] [place] [id number]- Care Team Providers Care Remote Sensing Surveyor Name Role Phone Marcin BALBUENA, Vonda Andrea Primary Care Physician Encounter [facility] Date(s): 09/21/22 - 10/21/22 [facility] [address] [place] [id number]- Attending Physician: Alejandro Hernández Admitting Physician: Alejandro [...] 01/01/18 15:13:56 EDT, Route to Pharmacy Electronically, [id number], [facility]/pharmacy #[id number] Start Date: 01/01/18 Status: Ordered [...] 5 Refills, Maintenance, 12/05/21 10:15:00 EDT, [facility], [id number] Start Date: 12/05/21 Status: Ordered Problem List Condition Confirmation Course Effective Dates Status Health St atus Informant CAD (coronary artery disease) Confirmed Active History of MRSA infection Confirmed Active Hyperlipemia Confirmed Active Hypertension Confirmed Active Social History Social History Type Response Tobacco Use: 4 or less cigar ettes(less than 1/4 pack)/day in last 30 days. Sex Laboratory * Event Display: Non Lab Results Authored Date: Patient Care team information Care Team Personnel Name: Chante Demarco RN Position: [facility] RN Member Role: Primary Care Nurse Name: Vonda Burch MD Position: [facility] Physician - Primary Care Member Role: PCP Address: Address: [facility] [place] [place] [address]- Name: Loren Angel RN Position: [facility] RN Member Role: Primary Care Nurse Name: Darin Desai RN Position: [facility] SN RN Member Role: Primary Care Nurse Name: Vanna Song RN Position: [facility] Onco RN Member Role: Primary Care Nurse Care Team Related Persons Name: SAMIR SAAB Address: [address] [place] [address]
--- NOTE | 2022-12-05 14:25 | ED_ITS ---
HPI - General Adult General Chief complaint: General Medical Stated complaint: LOW BS 43, GLUCOSE GIVEN PER EMS Time Seen by Provider: 12/05/22 14:07 Source: patient and EMS Mode of arrival: EMS Limitations: no limitations History of Present Illness HPI narrative: A 57-year-old male came in by ambulance for acute mental status change and found to have no blood sugar of 43 at home patient was given IM glucagon own and oral glucose with improvement of his mental status and repeat POC was 97. Patient is nondiabetic done use anti hyperglycemic agent, admitted to sniffing fentanyl in the morning and did not have breakfast and was found by his significant other confused. Related Data Home Medications Medication Instructions Recorded Confirmed cyclobenzaprine 10 mg tablet 10 mg PO TID 09/29/22 09/29/22 naproxen 500 mg tablet 500 mg PO BID 09/29/22 09/29/22 omeprazole 20 mg capsule,delayed 20 mg PO DAILY 09/29/22 09/29/22 release pregabalin 300 mg capsule 300 mg PO BID 09/29/22 09/29/22 Allergies Allergy/AdvReac Type Severity Reaction Status Date / Time aspirin AdvReac Epistaxis Verified 09/29/22 13:11 Review of Systems Review of Systems: All other systems are reviewed and are negative Constitutional: Reports as per HPI and Reports no additional constitutional complaints Eyes: Reports as per HPI and Reports no additional eye complaints Reports system reviewed and no additional complaints, except as documented Cardiovascular: Reports as per HPI and Reports no additional cardiovascular complaints Respiratory: Reports as per HPI and Reports no additional respiratory complaints Gastrointestinal: Reports as per HPI and Reports no additional gastrointestinal complaints Genitourinary: Reports no additional female genitourinary complaints Musculoskeletal: Reports no additional musculoskeletal complaints Skin/Breast: Reports system reviewed and no additional complaints, except as docu Psychiatric: Reports no additional psychiatric complaints Endocrine: Reports no additional endocrine complaints Hematologic/Lymphatic: Reports no additional hematologic/lymphatic complaints Allergic/Immunologic: Reports no additional allergic/immunologic complaints Reports system reviewed and no additional complaints, except as documented and Reports Abnormal speech present [facility] Past Medical History Medical History Hx of gastroesophageal reflux (GERD) Chronic back pain History of dysphagia Hx of myocardial infarction Neck pain with history of cervical spinal surgery Surgical History Hx of cervical spine surgery History of surgery on wrist Social History Social History Alcohol intake: current Alcohol intake frequency: holidays/special occasions only Patient Tobacco Use Status: Current everyday Tobacco user Smoked in Last 30 Days: Yes Use of substances other than those prescribed or required for medical reasons: No Substance Use Type: Marijuana Advance Directives: No Advance Directives Information Provided: Yes Physical Exam ED Vital Signs: Vital Signs - 24 hr 12/05/22 14:18 Temperature 97.6 F Pulse Rate 82 Respiratory Rate 18 Blood Pressure 158/94 H Pulse Oximetry 97 Oxygen Delivery Method Room Air BMI result Body Mass Index 25.5 Vital signs have been reviewed and appear to be correct. Blood pressure elevated. Heart rate normal. Respiratory rate normal. Temperature normal. Oxygen saturation normal. Appearance: Alert. Oriented X3. No acute distress. Head: Normal external exam. Normocephalic. Atraumatic. No Curiel signs noted. No raccoon eyes noted Eyes: PERRLA. EOMI. Conjunctiva and sclera normal. Eyelids normal. ENT: TM's Normal. Pharynx normal. Uvula midline. Moist mucous membranes. No trismus noted. No drooling noted. No muffled voice noted. Neck: Normal inspection. Neck supple. FROM. No adenopathy. Thyroid Normal. No meningeal signs. No neck mass noted. CVS: Normal heart rate and rhythm. Heart sound normal. No murmurs noted. Pulses normal throughout. Respiratory: No respiratory distress. Painless inspiration. Breath sounds normal. No wheezes/rales/rhonchi noted. Chest nontender. No accessory muscle usage noted or decreased air movement noted. Abdomen: Soft and nontender. Bowel sounds normal in all 4 quadrants. No distention noted. No organomegaly noted. No visible injury noted. Back: No CVA tenderness. Full range of motion noted. Skin: Skin warm and dry. Normal skin color. Normal skin turgor. No rashes/lesions/lacerations noted. Extremities: No lower extremity edema. Extremities exhibit normal range of motion. Extremities nontender. Neuro: Oriented X 3. Cranial nerve exam: II-XII are grossly intact No motor deficit. No sensory deficit. Reflexes normal. Course Course Course Narrative: 57-year-old came in for mental status change and found to be hypoglycemic after sniffing fentanyl. Patient was able to tolerate p.o. intake in the emergency department with improvement of mental status, patient now is awake, alert, and oriented x4. Normal neuro exam with GCS of 15. Reevaluation(s) Reevaluation #1: patient is awake, alert, walking in the emergency department with steady gait will discharge. Time: 15:43 Medical Decision Making Differential Diagnosis Differential Diagnoses: The differential diagnosis associated with the presentation includes (Hypoglycemia, head injury, CVA, drug abuse.) Admission/Observation Consideration of admission/observation: Escalation of care including adm ission/observation considered Lab Data MDM Lab Attestation statement: I reviewed the patient's lab results. Labs: Lab Results 12/05/22 Range/Units 14:25 POC Glucose 124 H (60-115) mg/dL Discharge Plan Discharge Clinical Impression: Hypoglycemia Patient Disposition: Home, Self-Care Instructions: Non-diabetic Hypoglycemia (ED) Prescriptions: No Action cyclobenzaprine 10 mg tablet 10 mg PO TID omeprazole 20 mg capsule,delayed release(DR/EC) 20 mg PO DAILY naproxen 500 mg tablet 500 mg PO BID pregabalin 300 mg capsule 300 mg PO BID Referrals: Physician,Unknown J [Primary Care Provider] -
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
--- OUTSIDE RECORDS SUMMARY | 2022-12-05 14:25 | XMS_ITS | Continuity of Care Document ---
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 Name Role Phone Vonda Burch MD Primary Care Physician [phone] Encounter [facility] Date(s): 07/24/22 - 10/21/22 [facility] [address] [place] [address]- Encounter Diagnosis Cirrhosis(Discharge Diagnosis) - 09/21/22 Hepatitis C(Discharge Diagnosis) - 09/21/22 GERD (gastroesophageal reflux disease)(Discharge Diagnosis) - 09/21/22 Attending Physician: Michael Weiner MD Admitting Physician: Michael Weiner MD Referring Physician: Vonda Burch MD Allergies, [...] 01/01/18 15:13:56 EDT, Route to Pharmacy Electronically, [id number], [facility]/pharmacy #[id number] Start Date: 01/01/18 Status: Ordered [...] Active Hyperlipemia Confirmed Active Hypertension Confirmed Active Diagnosis Diagnosis Type Effective Dates Health Status Cl inical Service Informant Cirrhosis Discharge Diagnosis 09/21/22 Hepatitis C Discharge Diagnosis 09/21/22 GERD (gastroesophagea l reflux disease) Discharge Diagnosis 09/21/22 Social History Social History Type Response Tobacco Use: 4 or less cigar ettes(less than 1/4 pack)/day in last 30 days. Sex Patient Care team information Care Team Personnel Name: Chante Demarco RN Position: [facility] RN Member Role: Primary Care Nurse Name: Vonda Burch MD Position: [facility] Physician - Primary Care Member Role: PCP Address: Address: [address] [place] [address]- Name: Loren Angel RN Position: S RN Member Role: Primary Care Nurse Name: Darin Desai RN Position: [facility] SN RN Member Role: Primary Care Nurse Name: Vanna Song RN Position: [facility] Onco RN Member Role: Primary Care Nurse Care Team Related Persons Name: SAMIR SAAB Address: [address] [place] [address]
[2022-12-05 14:29] LABS: Glucose, Whole Blood 124 mg/dL (60-115)
[2022-12-05 15:48] VITALS: BP 153/83; PULSE 88; RESP 18; O2SAT 97
== END 2022-12-05 15:55 | disposition home or self-care (01) ==
PROVIDERS: Emergency Provider Emergency Medicine
DX: E16.2 Hypoglycemia, unspecified (principal); F19.90 Other psychoactive substance use, unspecified, uncomplicated; K21.9 Gastro-esophageal reflux disease without esophagitis; I25.2 Old myocardial infarction; F17.200 Nicotine dependence, unspecified, uncomplicated; F12.90 Cannabis use, unspecified, uncomplicated; Z79.899 Other long term (current) drug therapy
CPT/HCPCS: 82947; 99282; 99284